=== PATIENT | female | born 1955 | race Caucasian/White ===

== ENCOUNTER 2017-10-25 07:55 | Day surgery (SDC) | payer OTHER ==
[~2017-10-25 07:55] MED LIST: Lactated Ringers 1,000 ML IV SCH; Lidocaine 1%/Sod Bicarbonate in NS 8.4% 1 ML Syringe IDERM PRN; Sodium Chloride 0.9% 10 ML Syringe FLUSH PRN
[2017-10-25] MEDS ORDERED: Propofol 200 MG/20 ML SDV ONE (08:24)
[2017-10-25] MEDS ORDERED: fentaNYL 100 MCG/2 ML SDV ONE (08:24)
[2017-10-25] MEDS ORDERED: Lidocaine 1% 4 ML ONE (08:25)
--- NOTE | 2017-10-25 08:42 | PCM.PREANE ---
Preanesthetic Assessment - Procedure Proposed Procedure: Diagnostic colonoscopy - Anesthesia/Transfusion/Family Hx Anesthesia History: Prior Anesthesia Without Reaction Family History of Anesthesia Reaction: No Transfusion History: No Prior Transfusion(s) Type of Transfusion Reactions: Reports: Unknown Additional History: Raynauds, Lupus - Review of Systems General: No Symptoms Pulmonary: No Symptoms Cardiovascular: Other (Heart murmer ) Gastrointestinal: No Symptoms Neurological: No Symptoms Other: Reports: Thyroid Problems (hypothyroid) - Physical Assessment NPO Status Date: 10/24/17 NPO Status Time: 23:00 ASA Class: 2 Mental Status: Alert & Oriented x3 Airway Class: Mallampati = 2 Dentition: Reports: Missing Tooth/Teeth (multiple molars ) Thyro-Mental Finger Breadths: 3 Mouth Opening Finger Breadths: 3 ROM/Head Extension: Full Lungs: Clear to Auscultation, Normal Respiratory Effort Cardiovascular: Regular Rate, Regular Rhythm - Allergies Allergies/Adverse Reactions: Allergies Allergy/AdvReac Type Severity Reaction Status Date / Time acetaminophen [From Roxicet] Allergy Hives Verified 10/24/17 12:59 hydroxychloroquine sulfate Allergy Hives Verified 10/24/17 12:59 [From Plaquenil] nitrofurantoin Allergy Hives Verified 10/24/17 12:59 [From Macrobid] nitrofurantoin Allergy Hives Verified 10/24/17 12:59 macrocrystalline [From Macrobid] oxycodone HCl [From Roxicet] Allergy Hives Verified 10/24/17 12:59 Sulfa (Sulfonamide Allergy Hives Verified 10/24/17 12:59 Antibiotics) - Blood Blood Available: No Product(s) Available: None - Anesthesia Plan Pre-Op Medication Ordered: None - Acknowledgements Anesthesia Type Planned: MAC Pt an Appropriate Candidate for the Planned Anesthesia: Yes Alternatives and Risks of Anesthesia Discussed w Pt/Guardian: Yes Pt/Guardian Understands and Agrees with Anesthesia Plan: Yes PreAnesthesia Questionnaire HEENT History: Reports: Cataract, Impaired Vision, Other (See Below) Other HEENT History: wears glasses Cardiovascular History: Reports: None Respiratory History: Reports: None Gastrointestinal History: Reports: Colon Polyp, Hemorrhoids Genitourinary History: Reports: None 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 Dermatologic History: Reports: Other (See Below) Other Dermatologic History: skin was removed; skin cancer previously. doesn't remember exactly what type. behind left ear. - Infectious Disease History Infectious Disease History: Reports: Chicken Pox - Past Surgical History Head Surgeries/Procedures: Reports: None HEENT Surgical History: Reports: Tonsillectomy Cardiovascular Surgical History: Reports: None Respiratory Surgical History: Reports: None GI Surgical History: Reports: Cholecystectomy, Colonoscopy, Other (See Below) Other GI Surgeries/Procedures: ileocecectomy Female Surgical History: Reports: Hysterectomy Male Surgical History: Reports: None Endocrine Surgical History: Reports: Thyroidectomy Neurological Surgical History: Reports: None Musculoskeletal Surgical History: Reports: Shoulder Surgery, Other (See Below) Other Musculoskeletal Surgeries/Procedures:: rotator cuff repair; bilateral Oncologic Surgical History: Reports: None - SUBSTANCE USE Smoking Status *Q: Current Every Day Smoker (10years) Tobacco Use Within Last Twelve Months: No Second Hand Smoke Exposure: No Recreational Drug Use History: No - HOME MEDS Home Medications: Home Meds Ascorbate Calcium [Vitamin C] 500 mg PO DAILY PRN 04/10/16 [History] Chloroquine Phosphate 500 mg PO DAILY 04/10/16 [History] Cholecalciferol (Vitamin D3) [Vitamin D3] 1,000 units PO DAILY 04/10/16 [History ] Docusate Sodium [Colace] 200 mg PO DAILY 04/10/16 [History] Ibuprofen 400 mg PO Q6HR PRN 04/10/16 [History] Levothyroxine Sodium [Synthroid] 125 mcg PO DAILY 04/10/16 [History] Multivitamin [Multivitamins] 1 each PO DAILY 04/10/16 [History] Triamcinolone Acetonide [Triamcinolone Acetonide 0.1% Crm] 1 applic TOP ASDIRECTED 04/10/16 [History] Crisaborole [Eucrisa] 1 dose TOP ASDIRECTED 10/24/17 [History] Gabapentin [Neurontin] 600 mg PO DAILY 10/24/17 [History] Turmeric Root Extract [Turmeric] 500 mg PO DAILY 10/24/17 [History] - CURRENT (IN HOUSE) MEDS Current Meds: Current Medications Lactated Ringer's (Ringers, Lactated) 1,000 mls @ 125 mls/hr IV ASDIRECTED TITI Last Admin: 10/25/17 08:20 Dose: 125 mls/hr Lidocaine/Sodium Bicarbonate (Buffered Lidocaine 1% In Ns 8.4%) 0.25 ml IDERM ONETIME PRN PRN Reason: Prior to IV Start Last Admin: 10/25/17 08:19 Dose: 0.25 ml Sodium Chloride (Saline Flush) 10 ml FLUSH ASDIRECTED PRN PRN Reason: Keep Vein Open Discontinued Medications Fentanyl (Sublimaze) Confirm Administered Dose 100 mcg .ROUTE .STK-MED ONE Stop: 10/25/17 08:25 Lidocaine HCl (Xylocaine-Mpf 1%) Confirm Administered Dose 4 mls @ as directed .ROUTE .STK-MED ONE Stop: 10/25/17 08:26 Propofol (Diprivan 20 Ml) Confirm Administered Dose 200 mg .ROUTE .STK-MED ONE Stop: 10/25/17 08:25
--- NOTE | 2017-10-25 09:40 | PCM48HPAN ---
Post Anesthesia Note - EVALUATION WITHIN 48HRS OF ANESTHETIC Vital Signs in Normal Range: Yes Patient Participated in Evaluation: Yes Respiratory Function Stable: Yes Airway Patent: Yes Cardiovascular Function Stable: Yes Hydration Status Stable: Yes Pain Control Satisfactory: Yes Nausea and Vomiting Control Satisfactory: Yes Mental Status Recovered: Yes Pulse Rate: 73 SaO2: 94 Resp Rate: 16 Temperature: 36.5 C Blood Pressure: 90/57
--- NOTE | 2017-10-25 09:43 | PCM.OPNOTE ---
- General Post-Op/Procedure Note Date of Surgery/Procedure: 10/25/17 Operative Procedure(s): Diagnostic colonoscopy Findings: Perianal tags with slightly prolapsing internal hemorrhoids. Otherwise normal colonoscopic evaluation Pre Op Diagnosis: History of high-grade dysplastic cecal polyp status post ileocecectomy Post-Op Diagnosis: Perianal tags. Internal hemorrhoids Anesthesia Technique: MAC, Moderate Sedation Primary Surgeon: Greg Harris Pathology: None EBL in mLs: 0 Complications: None Condition: Good Free Text/Narrative:: After adequate IV sedation and analgesia was obtained with monitoring the patient was placed on her left side. Perianal inspection revealed the perianal tags with slightly prolapsing internal hemorrhoids. Digital rectal examination confirmed the presence of the tags. A lubricated colonoscope was then inserted into the rectum and advanced to the ileal right colonic anastomosis. The bowel preparation was fair at best. There is a fair amount of retained stool. The ileum was intubated and was grossly normal. The anastomosis was widely patent with no stricturing. There were no recurrent lesions in the area. The ascending colon transverse descending and sigmoid colons were endoscopically normal with no mass lesions or inflammatory changes seen. The rectum in both views was unremarkable. Air was removed as I finished the procedure which she tolerated well. Elementary Tutor photographs were taken for the patient and for the medical record. There were no complications.
[2017-10-25 10:15] VITALS: BP 113/71
== END 2017-10-25 10:25 | disposition home or self-care (01) ==
LOC: JD.SDS 07:55
PROVIDERS: ATTEND Surgery
DX: Z12.11 Encounter for screening for malignant neoplasm of colon (principal); K64.4 Residual hemorrhoidal skin tags; K64.8 Other hemorrhoids; E03.9 Hypothyroidism, unspecified; I73.00 Raynaud's syndrome without gangrene; M35.00 Sjogren syndrome, unspecified; F17.200 Nicotine dependence, unspecified, uncomplicated; Z79.899 Other long term (current) drug therapy; Z88.2 Allergy status to sulfonamides; Z88.8 Allergy status to other drugs, medicaments and biological substances; Z90.49 Acquired absence of other specified parts of digestive tract; Z90.710 Acquired absence of both cervix and uterus; Z90.89 Acquired absence of other organs; Z98.890 Other specified postprocedural states; Z86.010 Personal history of colon polyps
CPT/HCPCS: J2001; J2704; J3010; J7120

== ENCOUNTER 2018-07-01 08:15 | Emergency (ER) | payer OTHER ==
[2018-07-01 08:23] VITALS: BP 145/71
--- NOTE | 2018-07-01 09:19 | EDM.PDOC ---
ED HPI GENERAL MEDICAL PROBLEM - General Chief Complaint: Head Injury Stated Complaint: [facility] Time Seen by Provider: 07/01/18 08:24 Source of Information: Reports: Patient, Family, RN Notes Reviewed History Limitations: Reports: No Limitations - History of Present Illness INITIAL COMMENTS - FREE TEXT/NARRATIVE: The patient states that she was smoking a cigarette in her garage, felt lightheaded, then, the next thing she knew, she was seated crosslegged on the garage floor, vomiting into a trash can. She apparently suffered a syncopal episode, striking the back of her head, as there is a large hematoma to her posterior skull. She is complaining of a significant headache, but no other physical injuries. The patient reports 2 or 3 prior syncopal episodes, thought possibly due to orthostasis. No recent illnesses. The patient's PCP is Dr. Kourtney Mcghee. Head Pain Score (Numeric/FACES): 8 - Related Data Allergies Allergy/AdvReac Type Severity Reaction Status Date / Time acetaminophen [From Roxicet] Allergy Hives Verified 07/01/18 08:23 hydroxychloroquine sulfate Allergy Hives Verified 07/01/18 08:23 [From Plaquenil] nitrofurantoin Allergy Hives Verified 07/01/18 08:23 [From Macrobid] nitrofurantoin Allergy Hives Verified 07/01/18 08:23 macrocrystalline [From Macrobid] oxycodone HCl [From Roxicet] Allergy Hives Verified 07/01/18 08:23 Sulfa (Sulfonamide Allergy Hives Verified 07/01/18 08:23 Antibiotics) Home Meds: Home Meds Ascorbate Calcium [Vitamin C] 500 mg PO DAILY PRN 04/10/16 [History] Chloroquine Phosphate 500 mg PO DAILY 04/10/16 [History] Cholecalciferol (Vitamin D3) [Vitamin D3] 1,000 units PO DAILY 04/10/16 [History ] Docusate Sodium [Colace] 200 mg PO DAILY 04/10/16 [History] Ibuprofen 400 mg PO Q6HR PRN 04/10/16 [History] Levothyroxine Sodium [Synthroid] 125 mcg PO DAILY 04/10/16 [History] Multivitamin [Multivitamins] 1 each PO DAILY 04/10/16 [History] Triamcinolone Acetonide [Triamcinolone Acetonide 0.1% Crm] 1 applic TOP ASDIRECTED 04/10/16 [History] Crisaborole [Eucrisa] 1 dose TOP ASDIRECTED 10/24/17 [History] Gabapentin [Neurontin] 600 mg PO DAILY 10/24/17 [History] Turmeric Root Extract [Turmeric] 500 mg PO DAILY 10/24/17 [History] Past Medical History HEENT History: Reports: Impaired Vision Other HEENT History: wears glasses Gastrointestinal History: Reports: Colon Polyp, Hemorrhoids 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: Endocrine/Metabolic History: Reports: Hypothyroidism (Grave disease, s/p thyroid ablation) Immunologic History: Reports: SLE, Other (See Below) (Raynaud phenomena, Sjogren disease) Oncologic (Cancer) History: Reports: Basal Cell Carcinoma (behind left ear) - Infectious Disease History Infectious Disease History: Reports: Chicken Pox - Past Surgical History HEENT Surgical History: Reports: Tonsillectomy GI Surgical History: Reports: Cholecystectomy, Colonoscopy, Other (See Below) ( Open ileocecectomy for dysplastic polyp) Female Surgical History: Reports: Hysterectomy Endocrine Surgical History: Reports: Thyroidectomy Musculoskeletal Surgical History: Reports: Shoulder Surgery (bilateral arthroscopic) Social & Family History - Family History Family Medical History: Noncontributory Cardiac: Reports: ND Other Cardiac Family History: pt. 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 ED EXAM, HEAD INJURY - Physical Exam Exam: See Below Exam Limited By: No Limitations General Appearance: Alert, WD/WN, No Apparent Distress Head: Normocephalic, Scalp Hematoma (Approximately 4 cm diameter, over midline occiput. No associated abrasion or laceration.) Eyes: Bilateral Eye: EOMI, Normal Inspection, PERRL Ears: Normal External Exam, Normal Canal, Hearing Grossly Normal, Normal TMs Nose: Normal Inspection, Normal Mucousa, No Blood Throat/Mouth: Normal Inspection, Normal Lips, Normal Teeth, Normal Gums, Normal Oropharynx, Normal Voice, No Airway Compromise Neck: Non-Tender, Full Range of Motion, Normal Alignment, Normal Inspection Respiratory: No Respiratory Distress, Lungs Clear, Normal Breath Sounds, No Accessory Muscle Use Cardiovascular: Normal Peripheral Pulses, Regular Rate, Rhythm, No Edema, No Gallop, No JVD, No Murmur, No Rub GI/Abdominal Exam: Normal Bowel Sounds, Soft, Non-Tender, No Organomegaly, No Distention, No Abnormal Bruit, No Mass (Female) Exam: Deferred Rectal (Female) Exam: Deferred Back Exam: Full Range of Motion, Normal Inspection, NT Extremities: Normal Inspection, Normal Range of Motion, No Pedal Edema, Normal Capillary Refill 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 nml As Tested, No Motor/Sensory Deficits, Alert, Oriented x 3 Skin: Normal Color, Warm/Dry EKG INTERPRETATION EKG Date: 07/01/18 Time: 09:30 Rhythm: NSR Rate (Beats/Min): 73 Guin: Normal P-Wave: Present QRS: Normal ST-T: Normal QT: Normal Comparison: No Change (04/11/2016) Course - Vital Signs Last Recorded V/S: Last Vital Signs Temp 36.4 C 07/01/18 08:18 Pulse 90 07/01/18 08:18 Resp 16 07/01/18 08:18 BP 145/71 H 07/01/18 08:18 Pulse Ox 98 07/01/18 08:18 Orthostatic Blood Pressure [ 115/77 Standing] Orthostatic Blood Pressure [ 126/71 Supine] - Orders/Labs/Meds Orders: Active Orders 24 hr Category Date Time Status EKG Documentation Completion [RC] STAT Care 07/01/18 09:19 Active Orthostatic Vital Signs [RC] STAT Care 07/01/18 09:16 Active CBC WITH MANUAL DIFF [HEME] Stat Lab 07/01/18 09:54 Received Labs: Laboratory Tests 07/01/18 07/01/18 Range/Units 09:54 09:54 WBC 8.16 (3.98-10.04) K/mm3 RBC 3.71 L (3.98-5.22) M/mm3 Hgb 12.9 (11.2-15.7) gm/L Hct 38.4 (34.1-44.9) % MCV 103.5 H (79.4-94.8) fl MCH 34.8 H (25.6-32.2) pg MCHC 33.6 (32.2-35.5) g/dl RDW Std Deviation 52.4 H (36.4-46.3) fL Plt Count 255 (182-369) K/mm3 MPV 9.1 L (9.4-12.3) fl Sodium 140 (136-145) mEq/L Potassium 4.1 (3.5-5.1) mEq/L Chloride 106 (98-107) mEq/L Carbon Dioxide 24 (21-32) mEq/L Anion Gap 14.1 (5-15) BUN 6 L (7-18) mg/dL Creatinine 0.7 (0.55-1.02) mg/dL Est Cr Clr Drug Dosing 65.90 mL/min Estimated GFR (MDRD) > 60 (>60) mL/min BUN/Creatinine Ratio 8.6 L (14-18) Glucose 102 (80-115) mg/dL Calcium 9.1 (8.5-10.1) mg/dL Total Bilirubin 0.4 (0.2-1.0) mg/dL AST 25 (15-37) U/L ALT 19 (14-59) U/L Alkaline Phosphatase 81 (46-116) U/L Total Protein 6.4 (6.4-8.2) g/dl Albumin 3.3 L (3.4-5.0) g/dl Globulin 3.1 gm/dL Albumin/Globulin Ratio 1.1 (1-2) Meds: Medications Discontinued Medications Generic Name Dose Route Start Last Admin Trade Name Freq PRN Reason Stop Dose Admin Acetaminophen 650 mg 07/01/18 10:03 07/01/18 10:08 Tylenol PO 07/01/18 10:04 650 mg NOW ONE Administration Ibuprofen 600 mg 07/01/18 09:53 07/01/18 10:09 Motrin PO 07/01/18 09:54 Not Given ONETIME ONE - Re-Assessments/Exams Free Text/Narrative Re-Assessment/Exam: 07/01/18 09:18 The patient is complaining of a headache and is beginning to have some neck ache , therefore we have ordered a CT scan of the head and C-spine. In addition, I have ordered orthostatics, as her history is consistent with syncope due to orthostasis. I have also ordered a CBC and CMP, to make sure that she is not severely anemic or suffering from a significant electrolyte abnormality or renal insufficiency. I also ordered an ECG to evaluate for any evidence of a dysrhythmia. 07/01/18 09:51 The patient is not orthostatic. 07/01/18 10:09 CT of the head without contrast is read by Dr. Wolff as: 1. Small areas of cortical hemorrhage within both frontal regions, worse on the right side. 2. Large soft tissue hematoma within the posterior scalp. 3. Nondisplaced occipital skull fracture. CT of the cervical spine without contrast is read by Dr. Wolff as: 1. Occipital skull fracture again noted. No displacement is seen. 2. Diffuse degenerative change as noted above. 3. No acute fracture is seen within the cervical spine. 07/01/18 10:[address] of the head findings with the patient and her family. I would like to discuss the case with a Neurologist, because some patients with cerebral contusions will be started on antiepileptic medications. The patient prefers [facility]. 07/01/18 10:24 Case discussed with Denisse at [facility], at 10:16. CT images were pushed to [facility] at 10:17. Case discussed with Dr. Johnson, Neurologist at [facility], at 10:20. He recommended that the patient be transferred to their Hospitalist service. He did not recommend that we start the patient on antiepileptic, however, he did want me to make sure that the paramedics have lorazepam available, in case the patient suffers a seizure. The patient will be admitted to the Hospitalist service. [facility] will call me back once he is available. 07/01/18 10:[address] Broussard, Hospitalist at [facility], at 10:30. He accepted the patient for transfer to their facility. Departure - Departure Time of Disposition: 10:34 Disposition: DC/Tfer to Acute Hospital 02 Condition: Fair Clinical Impression: Syncopal episodes, Fracture of occipital bone of skull with loss of consciousness, Cerebral contusion - Discharge Information *PRESCRIPTION DRUG MONITORING PROGRAM REVIEWED*: Not Applicable *COPY OF PRESCRIPTION DRUG MONITORING REPORT IN PATIENT RORO: Not Applicable Referrals: Kourtney Mcghee MD [Primary Care Provider] - Forms: ED Department Discharge - My Orders Last 24 Hours: My Active Orders 07/01/18 09:16 Orthostatic Vital Signs [RC] STAT 07/01/18 09:19 EKG Documentation Completion [RC] STAT 07/01/18 09:54 CBC WITH MANUAL DIFF [HEME] Stat - Assessment/Plan Last 24 Hours: My Active Orders 07/01/18 09:16 Orthostatic Vital Signs [RC] STAT 07/01/18 09:19 EKG Documentation Completion [RC] STAT 07/01/18 09:54 CBC WITH MANUAL DIFF [HEME] Stat
[2018-07-01] MEDS ORDERED: Ibuprofen 600 MG Tab PO ONE (09:53)
--- NOTE | 2018-07-01 10:02 | CT ---
CT cervical spine Technique: Multiple axial sections were obtained from above C1 inferiorly to the top of T2. Reconstructed sagittal and coronal images were reviewed. Comparison: No prior cervical spine imaging. Findings: Severe disc space narrowing is noted at C4-C5, C5-C6 and C6-C7. Posterior spurring is noted at these same levels as well as anterior spurring. Vertebral body heights are maintained. Scattered degenerative apophyseal change is noted throughout the cervical spine with slight spondylolisthesis at C3-C4 due to the degenerative apophyseal change. Mild to moderate bilateral neural foraminal stenosis is noted at C4-C5. Moderate to severe bilateral neural foraminal stenosis is noted on the left side at C5-C6 with moderate right-sided neural foraminal stenosis noted at C5-C6. Mild left-sided neural foraminal stenosis is noted at C6-C7. Mild central canal stenosis is noted at C5-C6 and C6-C7. Fracture is again seen within the posterior occipital bone extending to the skull base. No displacement is seen. No cervical spine fracture is identified. Impression: 1. Occipital skull fracture again noted. No displacement is seen. 2. Diffuse degenerative change as noted above. 3. No acute fracture is seen within the cervical spine. Diagnostic code #3
--- NOTE | 2018-07-01 10:02 | CT ---
Head CT Technique: Multiple axial sections through the brain were obtained. Intravenous contrast was not utilized. Comparison: No prior intracranial imaging. Findings: Large soft tissue hematoma is seen posteriorly within the scalp. Small cortical hemorrhages are seen within both frontal regions, slightly more prominent on the right side. No other abnormal parenchymal densities are seen. Ventricles along with basal cisterns and sulci over the convexities are within normal limits. No midline shift or mass effect is seen. Visualized sinuses are clear. Fracture is identified within the occipital bone extending into the skull base. No displacement is seen. Fracture is to the midline. No additional calvarial abnormality is appreciated. Impression: 1. Small areas of cortical hemorrhage within both frontal regions, worse on the right side. 2. Large soft tissue hematoma within the posterior scalp. 3. Nondisplaced occipital skull fracture. Diagnostic code #5
[2018-07-01] MEDS ORDERED: Acetaminophen 325 MG Tab PO ONE (10:03)
== END 2018-07-01 11:20 ==
LOC: JD.ED 08:15
DX: S02.119A Unspecified fracture of occiput, initial encounter for closed fracture (principal); S06.2X9A Diffuse traumatic brain injury with loss of consciousness of unspecified duration, initial encounter; E03.9 Hypothyroidism, unspecified; R55 Syncope and collapse; F17.210 Nicotine dependence, cigarettes, uncomplicated; Z88.8 Allergy status to other drugs, medicaments and biological substances; Z79.899 Other long term (current) drug therapy; W22.8XXA Striking against or struck by other objects, initial encounter
CPT/HCPCS: 36415; 70450; 72125; 80053; 85007; 85027; 93005; 99285; A9270

== ENCOUNTER 2020-01-30 22:37 | Emergency (ER) | payer OTHER ==
[2020-01-30 22:58] VITALS: BP 148/86; PULSE 80
[2020-01-30] MEDS ORDERED: Lidocaine 1% 20 ML MDV INJECT ONE (23:03)
[2020-01-30] MEDS ORDERED: Lidocaine 1% 50 ML MDV ONE (23:06)
--- NOTE | 2020-01-31 00:08 | EDM.PDOC ---
ED HPI GENERAL MEDICAL PROBLEM - General Chief Complaint: Head Injury Stated Complaint: FELL AND HIT HEAD BLACKED OUT Time Seen by Provider: 01/30/20 22:40 Source of Information: Reports: Patient, Family History Limitations: Reports: No Limitations - History of Present Illness INITIAL COMMENTS - FREE TEXT/NARRATIVE: This is a 64-year-old female. She apparently was going into her house when she stubbed her fourth toe of her left foot on a tuber molding and she fell striking the back of her head and having a moment of loss of consciousness. She is not certain whether she lost consciousness before she fell or after she fell. She has an 8 cm laceration to the top back of her head that is sort of C-shaped with a point. She also has a laceration in the webspace between her third and fourth toes. She also has an abrasion on her dorsal left wrist noted. She did land on her back but she does not appear to have any back symptoms or abrasions. She is alert and she is oriented. She denies any significant tenderness or pain. Family members came with her and states she has been acting normal since the incident. She did have a injury back in June 2018 and also July where she was described as having a concussion. Significant headache presently. She has had no double vision no ataxia no nausea or vomiting. Head Pain Score (Numeric/FACES): 3 - Related Data Allergies Allergy/AdvReac Type Severity Reaction Status Date / Time acetaminophen [From Roxicet] Allergy Hives Verified 01/30/20 22:58 hydroxychloroquine sulfate Allergy Hives Verified 01/30/20 22:58 [From Plaquenil] nitrofurantoin Allergy Hives Verified 01/30/20 22:58 [From Macrobid] nitrofurantoin Allergy Hives Verified 01/30/20 22:58 macrocrystalline [From Macrobid] oxycodone HCl [From Roxicet] Allergy Hives Verified 01/30/20 22:58 Sulfa (Sulfonamide Allergy Hives Verified 01/30/20 22:58 Antibiotics) Home Meds: Home Meds Ascorbate Calcium [Vitamin C] 500 mg PO DAILY PRN 04/10/16 [History] Chloroquine Phosphate 500 mg PO DAILY 04/10/16 [History] Cholecalciferol (Vitamin D3) [Vitamin D3] 1,000 units PO DAILY 04/10/16 [History] Docusate Sodium [Colace] 200 mg PO DAILY 04/10/16 [History] Ibuprofen 400 mg PO Q6HR PRN 04/10/16 [History] Levothyroxine Sodium [Synthroid] 125 mcg PO DAILY 04/10/16 [History] Multivitamin [Multivitamins] 1 each PO DAILY 04/10/16 [History] Triamcinolone Acetonide [Triamcinolone Acetonide 0.1% Crm] 1 applic TOP ASDIRECTED 04/10/16 [History] Crisaborole [Eucrisa] 1 dose TOP ASDIRECTED 10/24/17 [History] Gabapentin [Neurontin] 600 mg PO DAILY 10/24/17 [History] Turmeric Root Extract [Turmeric] 500 mg PO DAILY 10/24/17 [History] traMADol [Ultram] 50 mg PO Q6H PRN #15 tab 01/31/20 [Rx] Past Medical History HEENT History: Reports: Impaired Vision Other HEENT History: wears glasses Cardiovascular History: Reports: None Respiratory History: Reports: None Gastrointestinal History: Reports: Colon Polyp, Hemorrhoids Genitourinary History: Reports: None 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 Dermatologic History: Reports: Other (See Below) Other Dermatologic History: skin was removed; skin cancer previously. doesn't remember exactly what type. behind left ear. - Infectious Disease History Infectious Disease History: Reports: Chicken Pox - Past Surgical History Head Surgeries/Procedures: Reports: None HEENT Surgical History: Reports: Tonsillectomy Cardiovascular Surgical History: Reports: None Respiratory Surgical History: Reports: None GI Surgical History: Reports: Cholecystectomy, Colonoscopy, Other (See Below) Female Surgical History: Reports: Hysterectomy Endocrine Surgical History: Reports: Thyroidectomy Neurological Surgical History: Reports: None Musculoskeletal Surgical History: Reports: Shoulder Surgery Social & Family History - Family History Family Medical History: Noncontributory Cardiac: Reports: [place] Other Cardiac Family History: pt. 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 Denies: Confusion, Headache Psychiatric: Reports: No Symptoms Hematologic/Lymphatic: Reports: No Symptoms ED EXAM, HEAD INJURY - Physical Exam Exam: See Below Exam Limited By: No Limitations General Appearance: Alert, WD/WN, No Apparent Distress Head: Normocephalic, Other (Has on her upper occipital parietal area a C shaped laceration with more of a point at the middle of the C about 8 cm long. It is a sort of flap skinning type laceration. Bleeding is controlled.) Nexus Criteria: Altered Level of Consciousness. No: Posterior, Midline Cervical Tenderness, Painful Distraction Injuries Eyes: Bilateral Eye: Normal Inspection Ears: Normal External Exam Nose: Normal Inspection Throat/Mouth: Normal Lips, Normal Voice, No Airway Compromise Neck: Non-Tender, Full Range of Motion, Normal Alignment, Normal Inspection Respiratory: No Respiratory Distress GI/Abdominal Exam: Soft, Non-Tender Back Exam: Normal Inspection, Full Range of Motion, Other (Abrasions or contusions noted presently) Extremities: Normal Range of Motion, Other (Does have about a 1.2 cm laceration in the webspace between the third and fourth toes. Fourth toe is developing a bruise to it but it does not appear to be angulated or deviated.) Neurologic: No Motor/Sensory Deficits, Alert, Normal Mood/Affect, Oriented x 3 Skin: Normal Color, Warm/Dry - Shorty Coma Score Best Eye Response ([place]): (4) Open Spontaneously Best Verbal Response ([place]): (5) Oriented Best Motor Response ([place]): (6) Obeys Commands Shorty Total: 15 ED LACERATION/WOUND & SARA PROC - Laceration/Wound Repair Head Lac/wound length in cm: 8 Appearance: Subcutaneous, Clean Distal NVT: Neuro & Vascular Intact Anesthetic Type: Local Local Anesthesia - Lidocaine (Xylocaine): 1% Plain Local Anesthetic Volume: Other (18) Skin Prep: Saline Exploration/Debridement/Repair: Wound Explored, Explored to Base (No violation o f the galea) Closed with: Sutures Suture Size: 4-0 # of Sutures: 13 Suture Type: Nylon Sterile Dressing Applied: Nurse Tetanus Status Addressed: Yes Complications: No Progress/Comments: The patient tolerated the procedure with no difficulty. Left Foot Lac/wound length in cm: 1.2 Appearance: Subcutaneous Distal NVT: Neuro & Vascular Intact Anesthetic Type: Local Local Anesthesia - Lidocaine (Xylocaine): 1% Plain Local Anesthetic Volume: 4cc Skin Prep: Saline Exploration/Debridement/Repair: Wound Explored, Explored to Base Closed with: Sutures Suture Size: 5-0 # of Sutures: 3 Sterile Dressing Applied: Nurse Tetanus Status Addressed: Yes Complications: No Course - Vital Signs Last Recorded V/S: Last Vital Signs Temp 98.1 F 01/30/20 22:53 Pulse 80 01/30/20 22:53 Resp 16 01/30/20 22:53 BP 148/86 H 01/30/20 22:53 Pulse Ox 99 01/30/20 22:53 - Orders/Labs/Meds Orders: Active Orders 24 hr Category Date Time Status Head wo Cont [CT] Stat Exams 01/30/20 23:59 Taken Toes Fourth Digit Lt T3 [CR] Stat Exams 01/31/20 00:00 Taken Meds: Medications Discontinued Medications Generic Name Dose Route Start Last Admin Trade Name Freq PRN Reason Stop Dose Admin Lidocaine HCl 20 ml 01/30/20 23:03 01/30/20 23:16 Xylocaine 1% INJECT 01/30/20 23:04 Not Given ONETIME ONE Lidocaine HCl Confirm 01/30/20 23:06 01/30/20 23:16 Xylocaine 1% Administered 01/30/20 23:07 50 ml Dose Administration 50 ml .ROUTE .STK-MED ONE - Re-Assessments/Exams Free Text/Narrative Re-Assessment/Exam: 01/31/20 00:55 Entire time I was suturing her scalp and her toes her daughter was on the phone so she could hear what was going on and I answered all her questions. I also was on the phone with the daughter and the mother together when I gave him the report of the normal CT scan and the report that she is fractured the proximal phalanx of the fourth and probably the fifth toe as well. I will place her on some tramadol to help with the soreness if she needs it tomorrow. She is to get the sutures removed from her toes in about 7 days and her scalp about 10 days. Departure - Departure Time of Disposition: 00:56 Disposition: Home, Self-Care 01 Condition: Good Clinical Impression: Closed head injury with brief loss of consciousness Laceration of scalp Qualifiers: Encounter type: initial encounter Qualified Code(s): S01.01XA - Laceration without foreign body of scalp, initial encounter Laceration of left foot Qualifiers: Encounter type: initial encounter Qualified Code(s): S91.312A - Laceration without foreign body, left foot, initial encounter Closed fracture of phalanx of left fourth toe Qualifiers: Encounter type: initial encounter Qualified Code(s): S92.502A - Displaced unspecified fracture of left lesser toe(s), initial encounter for closed fracture Closed fracture of phalanx of left fifth toe Qualifiers: Encounter type: initial encounter Qualified Code(s): S92.502A - Displaced unspecified fracture of left lesser toe(s), initial encounter for closed fracture - Discharge Information *PRESCRIPTION DRUG MONITORING PROGRAM REVIEWED*: No *COPY OF PRESCRIPTION DRUG MONITORING REPORT IN PATIENT RORO: No Prescriptions: traMADol [Ultram] 50 mg PO Q6H PRN #15 tab PRN Reason: Pain Instructions: Toe Fracture, [id number], Head Injury, Adult, [id number], Sutured Wound Care, [id number] Referrals: Kourtney Mcghee MD [Primary Care Provider] - Forms: ED Department Discharge, ED Return to Work/School Form Additional Instructions: Keep wounds clean and dry, the sutures should come out of the left foot in about 7 days and the sutures should come out of the scalp in about 10 days, watch for infection if there is any signs follow-up the ER or her provider for reevaluation, the CT scan of the head was normal, she does have a nondisplaced fracture of the proximal phalanx of both the left fourth and fifth toes, use stiff soled shoes to help with the soreness, take the tramadol as needed for pain, follow-up with her provider for the suture removal, return to the ER as needed Sepsis Event Note (ED) - Evaluation Sepsis Screening Result: No Definite Risk - Focused Exam Vital Signs: Vital Signs Temp Pulse Resp BP Pulse Ox 01/30/20 22:53 98.1 F 80 16 148/86 H 99 - My Orders Last 24 Hours: My Active Orders 01/30/20 23:59 Head wo Cont [CT] Stat 01/31/20 00:00 Toes Fourth Digit Lt T3 [CR] Stat - Assessment/Plan Last 24 Hours: My Active Orders 01/30/20 23:59 Head wo Cont [CT] Stat 01/31/20 00:00 Toes Fourth Digit Lt T3 [CR] Stat
--- NOTE | 2020-01-31 11:39 | CT ---
Head CT Technique: Multiple axial sections through the brain were obtained. Intravenous contrast was not utilized. Comparison: Prior head CT study of 07/01/18 is available. Ventricles along with basal cisterns and sulci over the convexities are within normal limits for the patient's age. Minimal increased density is noted within the medial left frontal convexity most likely artifact. No definite findings of intracranial hemorrhage are seen. No midline shift or mass effect is seen. Bone window settings were reviewed. Visualized mastoid sinuses and visualized paranasal sinuses show nothing acute. No acute calvarial finding is appreciated. Scalp injury is noted within the left side of the scalp with soft tissue air compatible with skin injury. Mild scalp hematoma is also noted within the upper left scalp. Impression: 1. Scalp injury. 2. No acute intracranial abnormality is appreciated. Diagnostic code #3 Agree with preliminary report issued by [facility] ([facility] preliminary report dictated on 01/31/20, 1:43 AM Central Daylight Time) Study was dictated in MDT
--- NOTE | 2020-01-31 11:39 | CR ---
Right foot: 3 views of the right foot were obtained. Comparison: No prior foot or toe study is available. Plantar spur is noted. Joint space narrowing is noted within the first MTP joint with slight osteophytes. Minimal bunion deformity is also present. Fracture is noted within the proximal phalanx of the fourth toe. Fracture is also noted within the proximal phalanx of the fifth toe. No additional fracture or other abnormality is appreciated. Impression: 1. Fractures involving the proximal phalanx of the fourth and fifth toes. 2. Degenerative change, mild bunion deformity and calcaneal spurs. Diagnostic code #3 Study was dictated in MDT
== END 2020-01-31 01:33 | disposition home or self-care (01) ==
LOC: JD.ED 22:37
DX: S92.512A Displaced fracture of proximal phalanx of left lesser toe(s), initial encounter for closed fracture (principal); S91.312A Laceration without foreign body, left foot, initial encounter; S01.01XA Laceration without foreign body of scalp, initial encounter; S06.9X1A Unspecified intracranial injury with loss of consciousness of 30 minutes or less, initial encounter; F17.210 Nicotine dependence, cigarettes, uncomplicated; Z88.8 Allergy status to other drugs, medicaments and biological substances; Z88.5 Allergy status to narcotic agent; Z88.2 Allergy status to sulfonamides; Z79.899 Other long term (current) drug therapy; Z90.49 Acquired absence of other specified parts of digestive tract; Z90.710 Acquired absence of both cervix and uterus; W01.10XA Fall on same level from slipping, tripping and stumbling with subsequent striking against unspecified object, initial encounter; Y92.009 Unspecified place in unspecified non-institutional (private) residence as the place of occurrence of the external cause
CPT/HCPCS: 12004; 70450; 73660; 99284; J2001; 99283

== ENCOUNTER 2020-04-25 18:01 | Emergency (ER) | payer OTHER ==
[~2020-04-25 18:01] MED LIST changes: +Etomidate 2 MG/ML 20 ML SDV IVPUSH ONE; -Lactated Ringers 1,000 ML IV SCH; -Lidocaine 1%/Sod Bicarbonate in NS 8.4% 1 ML Syringe IDERM PRN; +Midazolam 1 MG/ML 5 ML SDV ONE; +Rocuronium 50 MG/5 ML Vial ONE; -Sodium Chloride 0.9% 10 ML Syringe FLUSH PRN; +Succinylcholine 200 MG/10 ML MDV ONE
[2020-04-25] MEDS ORDERED: Atropine 0.1 MG/ML 10 ML Syringe ONE (18:06)
[2020-04-25] MEDS ORDERED: Midazolam 1 MG/ML 2 ML SDV ONE (18:12)
[2020-04-25] MEDS ORDERED: Sodium Chloride 0.9% 10 ML Syringe FLUSH PRN (18:36)
[2020-04-25] MEDS ORDERED: Sodium Chloride 0.9% 1,000 ML IV SCH (18:45)
[2020-04-25] MEDS ORDERED: propofoL 100 ML ONE (19:19)
--- NOTE | 2020-04-25 19:53 | EDM.PDOC ---
ED HPI GENERAL MEDICAL PROBLEM - General Chief Complaint: Neurological Problem Stated Complaint: [facility] Time Seen by Provider: 04/25/20 18:15 Source of Information: Reports: Patient, Family History Limitations: Reports: No Limitations - History of Present Illness INITIAL COMMENTS - FREE TEXT/NARRATIVE: The patient presents by [facility] for low blood pressure and near syncope. 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 She called her daughter and said she does not feel well. She was lightheaded and feels like she is going to pass out. She said this has happened before but not this bad. The clinic staff checked her blood pressure and it was in the 60s and they could not palpate a pulse. She was sent over by EMS. They put an IV in and gave her some fluid. When I went to see her her pulse was from 15 to 20. It appears she was in a complete heart block. She felt she was going to pass out. She denies a headache, chest pain, abdominal pain, nausea or vomiting. She had this worked up before and nothing was found. Onset: Gradual Duration: Minutes: Severity: Moderate Improves with: Reports: None Worsens with: Reports: None Associated Symptoms: Denies: Chest Pain, Headaches, Nausea/Vomiting, Shortness of Breath Headache Pain Score (Numeric/FACES): 5 - Related Data Allergies Allergy/AdvReac Type Severity Reaction Status Date / Time acetaminophen [From Roxicet] Allergy Hives Verified 04/25/20 18:30 hydroxychloroquine sulfate Allergy Hives Verified 04/25/20 18:30 [From Plaquenil] nitrofurantoin Allergy Hives Verified 04/25/20 18:30 [From Macrobid] nitrofurantoin Allergy Hives Verified 04/25/20 18:30 macrocrystalline [From Macrobid] oxycodone HCl [From Roxicet] Allergy Hives Verified 04/25/20 18:30 Sulfa (Sulfonamide Allergy Hives Verified 04/25/20 18:30 Antibiotics) Home Meds: Home Meds Ascorbate Calcium [Vitamin C] 500 mg PO DAILY PRN 04/10/16 [History] Chloroquine Phosphate 250 mg PO BID 04/10/16 [History] Cholecalciferol (Vitamin D3) [Vitamin D3] 1,000 units PO DAILY 04/10/16 [History] Docusate Sodium [Colace] 200 mg PO DAILY 04/10/16 [History] Ibuprofen 200 mg PO Q6HR PRN 04/10/16 [History] Levothyroxine Sodium [Synthroid] 125 mcg PO DAILY 04/10/16 [History] Multivitamin [Multivitamins] 1 each PO DAILY 04/10/16 [History] Triamcinolone Acetonide [Triamcinolone Acetonide 0.1% Crm] 1 applic TOP ASDIRECTED 04/10/16 [History] Crisaborole [Eucrisa] 1 dose TOP ASDIRECTED 10/24/17 [History] Gabapentin [Neurontin] 600 mg PO DAILY 10/24/17 [History] Turmeric Root Extract [Turmeric] 500 mg PO DAILY 10/24/17 [History] traMADol [Ultram] 50 mg PO Q6H PRN #15 tab 01/31/20 [Rx] Cefuroxime [Ceftin] 250 mg PO BID 04/25/20 [History] Esomeprazole [NexIUM] 20 mg PO DAILY 04/25/20 [History] Meclizine HCl 25 mg PO DAILY PRN 04/25/20 [History] Vitamin B Complex 1 cap PO ASDIRECTED 04/25/20 [History] guaiFENesin [Mucinex] 1,200 mg PO BID 04/25/20 [History] Past Medical History HEENT History: Reports: Impaired Vision, Other (See Below) Other HEENT History: wears glasses, meniere's disease Cardiovascular History: Reports: High Cholesterol, Other (See Below) Other Cardiovascular History: raynauds disease Respiratory History: Reports: Bronchitis, Recurrent Gastrointestinal History: Reports: Colon Polyp, Hemorrhoids Genitourinary History: Reports: Pyelonephritis RECORDS MANAGER History: Reports: Musculoskeletal History: Reports: RA, Other (See Below) Other Musculoskeletal History: restless leg syndrome Neurological History: Reports: None Psychiatric History: Reports: None Endocrine/Metabolic History: Reports: Hypothyroidism Hematologic History: Reports: None Immunologic History: Reports: Other (See Below) Other Immunologic History: raynauds, sjogren's syndromes, discoid lupus erythematosus, Oncologic (Cancer) History: Reports: Basal Cell Carcinoma Other Oncologic History: skin cancer that has been removed behind left ear. Dermatologic History: Reports: Other (See Below) Other Dermatologic History: skin was removed; skin cancer previously. doesn't remember exactly what type. behind left ear. - Infectious Disease History Infectious Disease History: Reports: Chicken Pox - Past Surgical History HEENT Surgical History: Reports: Tonsillectomy GI Surgical History: Reports: Cholecystectomy, Colonoscopy, Other (See Below) Other GI Surgeries/Procedures: ileocecectomy Female Surgical History: Reports: Hysterectomy Endocrine Surgical History: Reports: Thyroidectomy Neurological Surgical History: Reports: None Musculoskeletal Surgical History: Reports: Shoulder Surgery Other Musculoskeletal Surgeries/Procedures:: rotator cuff repair; bilateral Oncologic Surgical History: Reports: None Social & Family History - Family History Family Medical History: No Pertinent Family History Cardiac: Reports: [place] Other Cardiac Family History: pt. 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 Denies: Fever, Chills HEENT: Reports: No Symptoms Respiratory: Reports: No Symptoms Cardiovascular: Reports: Lightheadedness. Denies: Chest Pain Endocrine: Reports: No Symptoms GI/Abdominal: Reports: No Symptoms : Reports: No Symptoms ED EXAM, NEURO - Physical Exam Exam: See Below Exam Limited By: No Limitations General Appearance: Alert Ears: Normal External Exam Nose: Normal Inspection Head Exam: Atraumatic, Normocephalic Neck: Normal Inspection Respiratory/Chest: No Respiratory Distress, Lungs Clear, Normal Breath Sounds Cardiovascular: No Murmur, Bradycardia GI/Abdominal: Soft, Non-Tender, No Organomegaly, No Mass Neurological: Alert, No Motor/Sensory Deficits, Oriented x 3 Skin Exam: Pallor (and cold) ED NEURO PROCEDURES - Endotracheal Intubation Time of Intubation: 19:00 ET Intubation Indication: Airway Protection Preparation: Suction, Balloon Tested, BVM Set Up, Difficult Airway Equip Pre-Oxygenation: Assisted with BVM, 100% FiO2 Anesthesia Meds: Etomidate, Succinylcholine Placement: Orotracheal, Cuffed, Uncomplicated Placement Cords Visualized: Yes ETT Size In mm: 7.5 Number of Attempts: 1 Confirmed By: CO2 Indicator, Bilateral Breath Sounds Tube Secured By: By RT Course - Vital Signs Last Recorded V/S: Last Vital Signs Temp 97.0 F 04/25/20 18:03 Pulse 20 L 04/25/20 18:03 Resp 14 04/25/20 18:03 BP 78/62 L 04/25/20 18:03 Pulse Ox 56 L 04/25/20 18:03 - Orders/Labs/Meds Orders: Active Orders 24 hr Category Date Time Status Cardiac Monitoring [RC] . DIRECTED Care 04/25/20 18:36 Active EKG Documentation Completion [RC] STAT Care 04/25/20 18:38 Active Peripheral IV Care [RC] . DIRECTED Care 04/25/20 18:36 Active RT Ventilator, Adult [RC] ASDIRECTED Care 04/25/20 19:36 Active Chest 1V Frontal [CR] Stat Exams 04/25/20 18:38 Taken CORONAVIRUS COVID-19 [facility] [MOLEC] Stat Lab 04/25/20 19:01 Received Sodium Chloride 0.9% [Normal Saline] 1,000 ml Med 04/25/20 18:45 Active IV .BOLUS Sodium Chloride 0.9% [Saline Flush] Med 04/25/20 18:36 Active 10 ml FLUSH ASDIRECTED PRN Peripheral IV Insertion Adult [OM.PC] Stat Oth 04/25/20 18:36 Ordered Medication Orders Sodium Chloride (Normal Saline) 1,000 mls @ 1,000 mls/hr IV .BOLUS TITI Sodium Chloride (Saline Flush) 10 ml FLUSH ASDIRECTED PRN PRN Reason: Keep Vein Open Labs: Laboratory Tests 04/25/20 04/25/20 04/25/20 Range/Units 18:15 18:15 18:15 WBC 6.98 (3.98-10.04) K/mm3 RBC 3.35 L (3.98-5.22) M/mm3 Hgb 12.2 (11.2-15.7) gm/dl Hct 35.5 (34.1-44.9) % MCV 106.0 H (79.4-94.8) fl MCH 36.4 H (25.6-32.2) pg MCHC 34.4 (32.2-35.5) g/dl RDW Std Deviation 47.5 H (36.4-46.3) fL Plt Count 214 (182-369) K/mm3 MPV 9.3 L (9.4-12.3) fl Neut % (Auto) 29.2 L (34.0-71.1) % Lymph % (Auto) 61.7 H (19.3-51.7) % [place] % (Auto) 8.6 (4.7-12.5) % Eos % (Auto) 0.1 L (0.7-5.8) Baso % (Auto) 0.4 (0.1-1.2) % Neut # (Auto) 2.03 (1.56-6.13) K/mm3 Lymph # (Auto) 4.31 H (1.18-3.74) K/mm3 [place] # (Auto) 0.60 H (0.24-0.36) K/mm3 Eos # (Auto) 0.01 L (0.04-0.36) K/mm3 Baso # (Auto) 0.03 (0.01-0.08) K/mm3 Manual Slide Review Abnormal smear D-Dimer, Quantitative 1.32 H (0.19-0.50) mg/L Sodium 133 L (136-145) mEq/L Potassium 4.1 (3.5-5.1) mEq/L Chloride 99 (98-107) mEq/L Carbon Dioxide 17 L (21-32) mEq/L Anion Gap 21.1 H (5-15) BUN 19 H (7-18) mg/dL Creatinine 1.2 H (0.55-1.02) mg/dL Est Cr Clr Drug Dosing TNP Estimated GFR (MDRD) 45 (>60) mL/min BUN/Creatinine Ratio 15.8 (14-18) Glucose 288 H (80-115) mg/dL Lactic Acid (0.4-2.0) mmol/L Calcium 8.5 (8.5-10.1) mg/dL Total Bilirubin 0.3 (0.2-1.0) mg/dL AST 102 H (15-37) U/L ALT 62 H (14-59) U/L Alkaline Phosphatase 94 (46-116) U/L Troponin I < 0.017 (0.00-0.056) ng/mL C-Reactive Protein <0.2 (<1.0) mg/dL Total Protein 5.7 L (6.4-8.2) g/dl Albumin 3.0 L (3.4-5.0) g/dl Globulin 2.7 gm/dL Albumin/Globulin Ratio 1.1 (1-2) 04/25/ Range/Units 18:50 WBC (3.98-10.04) K/mm3 RBC (3.98-5.22) M/mm3 Hgb (11.2-15.7) gm/dl Hct (34.1-44.9) % MCV (79.4-94.8) fl MCH (25.6-32.2) pg MCHC (32.2-35.5) g/dl RDW Std Deviation (36.4-46.3) fL Plt Count (182-369) K/mm3 MPV (9.4-12.3) fl Neut % (Auto) (34.0-71.1) % Lymph % (Auto) (19.3-51.7) % [place] % (Auto) (4.7-12.5) % Eos % (Auto) (0.7-5.8) Baso % (Auto) (0.1-1.2) % Neut # (Auto) (1.56-6.13) K/mm3 Lymph # (Auto) (1.18-3.74) K/mm3 [place] # (Auto) (0.24-0.36) K/mm3 Eos # (Auto) (0.04-0.36) K/mm3 Baso # (Auto) (0.01-0.08) K/mm3 Manual Slide Review D-Dimer, Quantitative (0.19-0.50) mg/L Sodium (136-145) mEq/L Potassium (3.5-5.1) mEq/L Chloride (98-107) mEq/L Carbon Dioxide (21-32) mEq/L Anion Gap (5-15) BUN (7-18) mg/dL Creatinine (0.55-1.02) mg/dL Est Cr Clr Drug Dosing Estimated GFR (MDRD) (>60) mL/min BUN/Creatinine Ratio (14-18) Glucose (80-115) mg/dL Lactic Acid 6.4 H* (0.4-2.0) mmol/L Calcium (8.5-10.1) mg/dL Total Bilirubin (0.2-1.0) mg/dL AST (15-37) U/L ALT (14-59) U/L Alkaline Phosphatase (46-116) U/L Troponin I (0.00-0.056) ng/mL C-Reactive Protein (<1.0) mg/dL Total Protein (6.4-8.2) g/dl Albumin (3.4-5.0) g/dl Globulin gm/dL Albumin/Globulin Ratio (1-2) Meds: Medications Generic Name Dose Route Start Last Admin Trade Name Freq PRN Reason Stop Dose Admin Sodium Chloride 1,000 mls @ 1,000 mls/hr 04/25/20 18:45 Normal Saline IV .BOLUS TITI Sodium Chloride 10 ml 04/25/20 18:36 Saline Flush FLUSH ASDIRECTED PRN Keep Vein Open Discontinued Medications Generic Name Dose Route Start Last Admin Trade Name Freq PRN Reason Stop Dose Admin Atropine Sulfate Confirm 04/25/20 18:06 Atropine 0.1 Mg/Ml Administered 04/25/20 18:07 Dose 1 mg .ROUTE .STK-MED ONE Propofol Confirm 04/25/20 19:19 Diprivan 100 Ml Administered 04/25/20 19:20 Dose 100 mls @ as directed .ROUTE .STK-MED ONE Midazolam HCl Confirm 04/25/20 18:12 Versed 1 Mg/Ml Administered 04/25/20 18:13 Dose 2 mg .ROUTE .STK-MED ONE - Re-Assessments/Exams Free Text/Narrative Re-Assessment/Exam: 04/25/20 19:54 When the patient got here I went into the room. She was pale and cool to the touch. She was still alert. Her palpable pulse was about 15 to 20. It appeared she may be in a complete heart block. I ordered some atropine 0.5mg IV but that had no affect. I ordered a pacer and we started at 60bpm and went up to the miliamps. We did get capture at about 120milliamps and rat fo 60 but it was every other beat. I went up with the rate and she is now in the 40s. Her BP is 133 systolic. I did give the patient some versed to help with the pain and she did not do well with that. I had to secure her airway. 04/25/20 19:58 Both [facility] are full. I called [facility] in [place] and talked with Dr Sharp and he agreed to the transfer. I will need to fly her by [place] [facility]. I did give her some propofol for sedation. 04/25/20 20:00 Critical care time is 60 minutes. Departure - Departure Time of Disposition: 20:00 Disposition: DC/Tfer to Acute Hospital 02 Condition: Critical Clinical Impression: Complete heart block Hypotension Qualifiers: Hypotension type: other hypotension type Qualified Code(s): I95.89 - Other hypotension - Discharge Information Referrals: Kourtney Mcghee MD [Primary Care Provider] - Sepsis Event Note (ED) - Evaluation Sepsis Screening Result: No Definite Risk - Focused Exam Vital Signs: Vital Signs Temp Pulse Resp BP Pulse Ox 04/25/20 18:03 97.0 F 20 L 14 78/62 L 56 L - My Orders Last 24 Hours: My Active Orders 04/25/20 18:36 Cardiac Monitoring [RC] . DIRECTED Peripheral IV Care [RC] . DIRECTED Sodium Chloride 0.9% [Saline Flush] 10 ml FLUSH ASDIRECTED PRN Peripheral IV Insertion Adult [OM.PC] Stat 04/25/20 18:38 EKG Documentation Completion [RC] STAT Chest 1V Frontal [CR] Stat 04/25/20 18:45 Sodium Chloride 0.9% [Normal Saline] 1,000 ml IV .BOLUS 04/25/20 19:01 CORONAVIRUS COVID-19 [facility] [MOLEC] Stat 04/25/20 19:36 RT Ventilator, Adult [RC] ASDIRECTED - Assessment/Plan Last 24 Hours: My Active Orders 04/25/20 18:36 Cardiac Monitoring [RC] . DIRECTED Peripheral IV Care [RC] . DIRECTED Sodium Chloride 0.9% [Saline Flush] 10 ml FLUSH ASDIRECTED PRN Peripheral IV Insertion Adult [OM.PC] Stat 04/25/20 18:38 EKG Documentation Completion [RC] STAT Chest 1V Frontal [CR] Stat 04/25/20 18:45 Sodium Chloride 0.9% [Normal Saline] 1,000 ml IV .BOLUS 04/25/20 19:01 CORONAVIRUS COVID-19 [facility] [MOLEC] Stat 04/25/20 19:36 RT Ventilator, Adult [RC] ASDIRECTED
[2020-04-25] MEDS ORDERED: fentaNYL 2,500 MCG in Sodium Chloride 0.9% 200 ML IV SCH (20:15)
[2020-04-25] MEDS ORDERED: fentaNYL 2500 MCG/50 ML SDV ONE (20:16)
[2020-04-25] MEDS ORDERED: Sodium Chloride 0.9% 250 ML ONE (20:17)
[2020-04-26 00:28] VITALS: BP 141/52; PULSE 44
--- NOTE | 2020-04-26 09:07 | CR ---
PROCEDURE INFORMATION: Exam: XR Chest, 1 View Exam date and time: 04/25/2020 6:25 PM Age: 65 years old Clinical indication: Chest pain; Type not specified; Patient HX: Patient has been intubated. . . TECHNIQUE: Imaging protocol: XR of the chest Views: 1 view. COMPARISON: CR Chest 1V Frontal 04/16/2016 6:09 PM FINDINGS: Tubes, catheters and devices: Endotracheal tube is in place with the tip approximately 4.8 cm above the level of the feliciano. Lungs: Atelectatic and/or infiltrative changes noted within both lung bases. Pleural space: There is no evidence of pneumothorax. Small left pleural effusion. Heart/Mediastinum: Unremarkable. No cardiomegaly. Vasculature: The vasculature demonstrates diffuse mild atherosclerotic calcification. Bones/joints: Postoperative changes of the right shoulder. The thoracic spine demonstrates mild degenerative changes at multiple levels. IMPRESSION: 1. Endotracheal tube is in place with the tip approximately 4.8 cm above the level of the feliciano. 2. There is no evidence of pneumothorax. 3. Atelectatic and/or infiltrative changes noted within both lung bases. 4. Small left pleural effusion. Thank you for allowing us to participate in the care of your patient. Dictated and Authenticated by: Adal Mcghee DO 04/25/2020 7:59 PM Central Time ([place] & [place]) ZEV
== END 2020-04-25 20:58 ==
LOC: JD.ED 18:01
DX: I44.2 Atrioventricular block, complete (principal); I95.89 Other hypotension; E03.9 Hypothyroidism, unspecified; F17.210 Nicotine dependence, cigarettes, uncomplicated; Z88.5 Allergy status to narcotic agent; Z88.2 Allergy status to sulfonamides; Z90.49 Acquired absence of other specified parts of digestive tract; Z90.710 Acquired absence of both cervix and uterus
CPT/HCPCS: 31500; 36415; 43752; 51702; 71045; 80053; 83605; 84484; 85025; 85379; 86140; 87635; 93005; 99152; 99153; 99285; J0330; J0461; J2250; J2704; J3010; J3490; J7030; J7050; 99291; U0002

== ENCOUNTER 2021-03-24 09:42 | Emergency (ER) | payer OTHER ==
[2021-03-24 10:37] VITALS: BP 146/108; PULSE 79
[2021-03-24] MEDS ORDERED: Sodium Chloride 0.9% 10 ML Syringe FLUSH PRN (11:03)
--- NOTE | 2021-03-24 11:39 | CT ---
Head CT Technique: Multiple axial sections through the brain were obtained. Intravenous contrast was not utilized. Reconstructed coronal and sagittal images were obtained. Comparison: Prior head CT study of 01/28/21. Findings: Ventricles along with basal cisterns and sulci over the convexities are within normal limits for the patient's age. No abnormal parenchymal densities are seen. No evidence of intracranial hemorrhage is seen. No midline shift or mass-effect is seen. Bone window settings were reviewed. Right mastoid sinus shows minimal mucosal thickening which is felt to be incidental. Visualized paranasal sinuses are clear. Slight atherosclerotic calcification is seen within the carotid siphon. No acute calvarial abnormality is appreciated. Impression: 1. Minimal mucosal thickening within the inferior right mastoid sinus which is felt to be incidental. 2. Slight atherosclerotic calcification within the carotid siphon. 3. No acute intracranial abnormality is appreciated. Diagnostic code #2
--- NOTE | 2021-03-24 13:32 | EDM.PDOC ---
ED HPI GENERAL MEDICAL PROBLEM - General Chief Complaint: Syncope Stated Complaint: CHEST PAIN Time Seen by Provider: 03/24/21 10:42 Source of Information: Reports: Patient History Limitations: Reports: No Limitations - History of Present Illness INITIAL COMMENTS - FREE TEXT/NARRATIVE: The patient presents from [facility] in [place]. She had a near syncopal episode and a headache. Dr Mcghee saw her and did an EKG and it looked good. She sent her over for a CT of her head and troponin. The patient has a history of a head bleed. She also has a family history of brain tumor. She said for a few weeks she has been waking up with a headache. She has no numbness, weakness, vision changes, speech problems, fever, chills, cough, chest pain, shortness of breath, abdominal pain, nausea or vomiting. She does have some sinus congestion and runny nose at times. Onset: Sudden Duration: Minutes: Location: Reports: Head Quality: Reports: Ache Severity: Moderate Improves with: Reports: None Worsens with: Reports: None Associated Symptoms: Reports: Headaches. 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 - Related Data Allergies Allergy/AdvReac Type Severity Reaction Status Date / Time acetaminophen [From Roxicet] Allergy Hives Verified 03/24/21 10:38 hydroxychloroquine sulfate Allergy Hives Verified 03/24/21 10:38 [From Plaquenil] nitrofurantoin Allergy Hives Verified 03/24/21 10:38 [From Macrobid] nitrofurantoin Allergy Hives Verified 03/24/21 10:38 macrocrystalline [From Macrobid] oxycodone HCl [From Roxicet] Allergy Hives Verified 03/24/21 10:38 Sulfa (Sulfonamide Allergy Hives Verified 03/24/21 10:38 Antibiotics) Home Meds: Home Meds Ascorbate Calcium [Vitamin C] 500 mg PO DAILY PRN 04/10/16 [History] Chloroquine Phosphate 250 mg PO BID 04/10/16 [History] Cholecalciferol (Vitamin D3) [Vitamin D3] 1,000 units PO DAILY 04/10/16 [History] Docusate Sodium [Colace] 200 mg PO DAILY 04/10/16 [History] Ibuprofen 200 mg PO Q6HR PRN 04/10/16 [History] Levothyroxine Sodium [Synthroid] 125 mcg PO DAILY 04/10/16 [History] Multivitamin [Multivitamins] 1 each PO DAILY 04/10/16 [History] Triamcinolone Acetonide [Triamcinolone Acetonide 0.1% Crm] 1 applic TOP ASDIRECTED 04/10/16 [History] Crisaborole [Eucrisa] 1 dose TOP ASDIRECTED 10/24/17 [History] Gabapentin [Neurontin] 600 mg PO DAILY 10/24/17 [History] Turmeric Root Extract [Turmeric] 500 mg PO DAILY 10/24/17 [History] traMADol [Ultram] 50 mg PO Q6H PRN #15 tab 01/31/20 [Rx] Cefuroxime [Ceftin] 250 mg PO BID 04/25/20 [History] Esomeprazole [NexIUM] 20 mg PO DAILY 04/25/20 [History] Meclizine HCl 25 mg PO DAILY PRN 04/25/20 [History] Vitamin B Complex 1 cap PO ASDIRECTED 04/25/20 [History] guaiFENesin [Mucinex] 1,200 mg PO BID 04/25/20 [History] Amoxicillin 875 mg PO BID #20 tab 03/24/21 [Rx] Past Medical History HEENT History: Reports: Impaired Vision, Other (See Below) Other HEENT History: wears glasses, meniere's disease Cardiovascular History: Reports: High Cholesterol, Other (See Below) Other Cardiovascular History: raynauds disease Respiratory History: Reports: Bronchitis, Recurrent Gastrointestinal History: Reports: Colon Polyp, Hemorrhoids Genitourinary History: Reports: Pyelonephritis D[employer]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 Dermatologic History: Reports: Other (See Below) Other Dermatologic History: skin was removed; skin cancer previously. doesn't remember exactly what type. behind left ear. - Infectious Disease History Infectious Disease History: Reports: Chicken Pox - Past Surgical History Head Surgeries/Procedures: Reports: None HEENT Surgical History: Reports: Tonsillectomy Cardiovascular Surgical History: Reports: None Respiratory Surgical History: Reports: None GI Surgical History: Reports: Cholecystectomy, Colonoscopy, Other (See Below) Other GI Surgeries/Procedures: ileocecectomy Female Surgical History: Reports: Hysterectomy Endocrine Surgical History: Reports: Thyroidectomy Neurological Surgical History: Reports: None Musculoskeletal Surgical History: Reports: Shoulder Surgery Other Musculoskeletal Surgeries/Procedures:: rotator cuff repair; bilateral Oncologic Surgical History: Reports: None Social & Family History - Family History Family Medical History: No Pertinent Family History Cardiac: Reports: [place] Other Cardiac Family History: pt. 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[employer]) [facility] - Review of Systems Review Of Systems: See Below Constitutional: Reports: No Symptoms HEENT: Reports: Other (congestion or runny nose) Respiratory: Reports: No Symptoms Cardiovascular: Reports: No Symptoms Endocrine: Reports: No Symptoms GI/Abdominal: Reports: No Symptoms : Reports: No Symptoms Musculoskeletal: Reports: No Symptoms - Physical Exam Exam: See Below Exam Limited By: No Limitations General Appearance: Alert, No Apparent Distress Ears: Normal External Exam Nose: Normal Inspection Throat/Mouth: Normal Inspection Head Exam: Atraumatic, Normocephalic Neck: Normal Inspection Respiratory/Chest: No Respiratory Distress, Lungs Clear, Normal Breath Sounds Cardiovascular: Regular Rate, Rhythm, No Edema, No Murmur GI/Abdominal: Soft, Non-Tender, No Organomegaly, No Mass Course - Vital Signs Last Recorded V/S: Last Vital Signs Temp 98.2 F 03/24/21 10:00 Pulse 79 03/24/21 10:00 Resp 16 03/24/21 10:00 BP 146/108 H 03/24/21 10:00 Pulse Ox 96 03/24/21 10:00 - Orders/Labs/Meds Orders: Active Orders 24 hr Category Date Time Status Cardiac Monitoring [RC] . DIRECTED Care 03/24/21 11:03 Active Peripheral IV Care [RC] . DIRECTED Care 03/24/21 11:04 Active Sodium Chloride 0.9% [Saline Flush] Med 03/24/21 11:03 Active 10 ml FLUSH ASDIRECTED PRN Peripheral IV Insertion Adult [OM.PC] Stat Oth 03/24/21 11:03 Ordered Medication Orders Sodium Chloride (Sodium Chloride 0.9% 10 Ml Syringe) 10 ml FLUSH ASDIRECTED PRN PRN Reason: Keep Vein Open Labs: Laboratory Tests 03/24/21 03/24/21 Range/Units 12:10 12:10 WBC 4.73 (3.98-10.04) K/mm3 RBC 4.28 (3.98-5.22) M/mm3 Hgb 14.7 D (11.2-15.7) gm/dl Hct 43.5 (34.1-44.9) % MCV 101.6 H D (79.4-94.8) fl MCH 34.3 H (25.6-32.2) pg MCHC 33.8 (32.2-35.5) g/dl RDW Std Deviation 51.0 H (36.4-46.3) fL Plt Count 212 (182-369) K/mm3 MPV 9.2 L (9.4-12.3) fl Neut % (Auto) 47.5 (34.0-71.1) % Lymph % (Auto) 37.6 (19.3-51.7) % [place] % (Auto) 13.5 H (4.7-12.5) % Eos % (Auto) 0.8 (0.7-5.8) Baso % (Auto) 0.4 (0.1-1.2) % Neut # (Auto) 2.24 (1.56-6.13) K/mm3 Lymph # (Auto) 1.78 (1.18-3.74) K/mm3 [place] # (Auto) 0.64 H (0.24-0.36) K/mm3 Eos # (Auto) 0.04 (0.04-0.36) K/mm3 Baso # (Auto) 0.02 (0.01-0.08) K/mm3 Sodium 140 (136-145) mEq/L Potassium 4.1 (3.5-5.1) mEq/L Chloride 104 (98-107) mEq/L Carbon Dioxide 26 (21-32) mEq/L Anion Gap 14.1 (5-15) BUN 8 (7-18) mg/dL Creatinine 0.7 (0.55-1.02) mg/dL Est Cr Clr Drug Dosing TNP Estimated GFR (MDRD) > 60 (>60) mL/min BUN/Creatinine Ratio 11.4 L (14-18) Glucose 94 (70-99) mg/dL Calcium 9.3 (8.5-10.1) mg/dL Magnesium 2.0 (1.8-2.4) mg/dL Total Bilirubin 0.4 (0.2-1.0) mg/dL AST 24 (15-37) U/L ALT 16 (14-59) U/L Alkaline Phosphatase 63 (46-116) U/L Troponin I < 0.017 (0.00-0.056) ng/mL Total Protein 7.0 (6.4-8.2) g/dl Albumin 3.8 (3.4-5.0) g/dl Globulin 3.2 gm/dL Albumin/Globulin Ratio 1.2 (1-2) Meds: Medications Generic Name Dose Route Start Last Admin Trade Name Freq PRN Reason Stop Dose Admin Sodium Chloride 10 ml 03/24/21 11:03 Sodium Chloride 0.9% 10 Ml Syringe FLUSH ASDIRECTED PRN Keep Vein Open - Re-Assessments/Exams Free Text/Narrative Re-Assessment/Exam: 03/24/21 13:[address] of her head and labs. Her CT shows minimal mucosal thickening within the inferior right mastoid sinus which is felt to be incidental. Slight atherosclerotic calcification within the carotid siphon. No acute intracranial abnormality is appreciated. 03/24/21 13:36 Her CBC and CMP look good. Her troponin is negative. I will discharge her home. 03/24/21 13:46 I will treat her for a sinus infection. Departure - Departure Time of Disposition: 13:50 Disposition: Home, Self-Care 01 Condition: Good Clinical Impression: Near syncope Sinus infection Qualifiers: Sinusitis location: unspecified location Chronicity: acute Recurrence: non- recurrent Qualified Code(s): J01.90 - Acute sinusitis, unspecified Headache Qualifiers: Headache type: unspecified Headache chronicity pattern: unspecified pattern Intractability: not intractable Qualified Code(s): R51.9 - Headache, unspecified - Discharge Information *PRESCRIPTION DRUG MONITORING PROGRAM REVIEWED*: Not Applicable *COPY OF PRESCRIPTION DRUG MONITORING REPORT IN PATIENT RORO: Not Applicable Prescriptions: Amoxicillin 875 mg PO BID #20 tab Referrals: Kourtney Mcghee MD [Primary Care Provider] - 1 Week Forms: ED Department Discharge Additional Instructions: Take the amoxicillin 2 times per day for 10 days. Follow up with Dr Mcghee within a week. Please return if you are worse. Sepsis Event Note (ED) - Evaluation Sepsis Screening Result: No Definite Risk - Focused Exam Vital Signs: Vital Signs Temp Pulse Resp BP Pulse Ox 03/24/21 10:00 98.2 F 79 16 146/108 H 96 - My Orders Last 24 Hours: My Active Orders 03/24/21 11:03 Cardiac Monitoring [RC] . DIRECTED Sodium Chloride 0.9% [Saline Flush] 10 ml FLUSH ASDIRECTED PRN Peripheral IV Insertion Adult [OM.PC] Stat 03/24/21 11:04 Peripheral IV Care [RC] . DIRECTED - Assessment/Plan Last 24 Hours: My Active Orders 03/24/21 11:03 Cardiac Monitoring [RC] . DIRECTED Sodium Chloride 0.9% [Saline Flush] 10 ml FLUSH ASDIRECTED PRN Peripheral IV Insertion Adult [OM.PC] Stat 03/24/21 11:04 Peripheral IV Care [RC] . DIRECTED
== END 2021-03-24 14:20 | disposition home or self-care (01) ==
LOC: JD.ED 09:42
DX: J01.90 Acute sinusitis, unspecified (principal); R55 Syncope and collapse; E78.00 Pure hypercholesterolemia, unspecified; E03.9 Hypothyroidism, unspecified; Z88.1 Allergy status to other antibiotic agents; Z88.2 Allergy status to sulfonamides; Z79.899 Other long term (current) drug therapy; Z72.0 Tobacco use
CPT/HCPCS: 36415; 70450; 70450-26; 80053; 83735; 84484; 85025; 99284-25

== ENCOUNTER 2022-11-07 07:01 | Day surgery (SDC) | payer MEDICARE, BC ==
[~2022-11-07 07:01] MED LIST changes: -Etomidate 2 MG/ML 20 ML SDV IVPUSH ONE; +Lactated Ringers 1,000 ML IV SCH; +Lidocaine 1%/Sod Bicarbonate in NS 8.4% 1 ML Syringe IDERM PRN; -Midazolam 1 MG/ML 5 ML SDV ONE; -Rocuronium 50 MG/5 ML Vial ONE; +Sodium Chloride 0.9% 10 ML Syringe FLUSH PRN; +Sodium Chloride 0.9% 10 ML Syringe FLUSH SCH; -Succinylcholine 200 MG/10 ML MDV ONE
[2022-11-07] MEDS ORDERED: Bupivacaine 0.5% 30 ML SDV ONE (07:28)
[2022-11-07] MEDS ORDERED: Lidocaine 1% 4 ML ONE (07:49)
[2022-11-07] MEDS ORDERED: fentaNYL 100 MCG/2 ML SDV ONE (07:50)
[2022-11-07] MEDS ORDERED: Propofol 200 MG/20 ML SDV ONE ×4 (07:50→09:11)
[2022-11-07] MEDS ORDERED: Ketorolac 15 MG/ML SDV ONE (08:58)
[2022-11-07 10:39] VITALS: BP 133/72; PULSE 68
== END 2022-11-07 10:25 | disposition home or self-care (01) ==
LOC: JD.SDS 07:01
PROVIDERS: ATTEND Surgery
DX: D12.5 Benign neoplasm of sigmoid colon (principal); K31.89 Other diseases of stomach and duodenum; Q43.8 Other specified congenital malformations of intestine; K21.9 Gastro-esophageal reflux disease without esophagitis; K44.9 Diaphragmatic hernia without obstruction or gangrene; K29.70 Gastritis, unspecified, without bleeding; K63.89 Other specified diseases of intestine; K64.4 Residual hemorrhoidal skin tags; K64.8 Other hemorrhoids; I10 Essential (primary) hypertension; E03.9 Hypothyroidism, unspecified; F17.290 Nicotine dependence, other tobacco product, uncomplicated; E78.00 Pure hypercholesterolemia, unspecified; Z86.010 Personal history of colon polyps; Z98.890 Other specified postprocedural states; Z79.899 Other long term (current) drug therapy; Z79.890 Hormone replacement therapy; Z88.8 Allergy status to other drugs, medicaments and biological substances; Z88.6 Allergy status to analgesic agent; Z88.1 Allergy status to other antibiotic agents; Z88.5 Allergy status to narcotic agent; Z88.2 Allergy status to sulfonamides
CPT/HCPCS: 43239; 45380; A9270; J1885; J2704; J3010; J3490; J7120

== ENCOUNTER 2024-12-08 07:54 | Day surgery (SDC) | payer MEDICARE, BC ==
[~2024-12-08 07:54] MED LIST changes: -Lactated Ringers 1,000 ML IV SCH; -Lidocaine 1%/Sod Bicarbonate in NS 8.4% 1 ML Syringe IDERM PRN
[2024-12-08] MEDS: Lactated Ringers 1,000 ML IV SCH (08:10)
[2024-12-08] MEDS ORDERED: Propofol 200 MG/20 ML SDV ONE ×2 (08:54→09:12)
[2024-12-08 10:27] VITALS: BP 101/57; PULSE 70
== END 2024-12-08 10:00 | disposition home or self-care (01) ==
LOC: JD.SDS 07:54
PROVIDERS: ATTEND Surgery
DX: K21.9 Gastro-esophageal reflux disease without esophagitis (principal); K44.9 Diaphragmatic hernia without obstruction or gangrene; F17.210 Nicotine dependence, cigarettes, uncomplicated; Z86.39 Personal history of other endocrine, nutritional and metabolic disease; Z88.8 Allergy status to other drugs, medicaments and biological substances; Z88.5 Allergy status to narcotic agent; Z88.2 Allergy status to sulfonamides; Z79.899 Other long term (current) drug therapy
CPT/HCPCS: 43239; 88305; A9270; C9777; J2003; J2704; J7120; 43499